=== PATIENT | female | born 1940 | race Caucasian/White ===

== ENCOUNTER 2020-12-01 12:33 | Inpatient (IN) ==
[2020-12-01] MEDS ORDERED: morphine 4 MG/ML VIAL IV ONE (13:07)
--- NOTE | 2020-12-01 13:10 | Emergency Department Note ---
Lower Extremity Injury HPI General Chief Complaint: Extremity Injury, Lower Stated Complaint: Right Hip Pain Time Seen by Provider: 12/01/20 12:59 Source: patient Mode of arrival: wheelchair Limitations: no limitations History of Present Illness HPI Narrative: Patient is an 80-year-old lady who arrives emergency department by private vehicle accompanied by her complaining of a fall. The patient says last night she was carrying her dog trying to get into a vehicle when she lost her balance and fell, landing on her right side injuring her right leg and right elbow. She did not strike her head and did not lose consciousness. Her assisted her up but she has been having difficulty ambulating ever since due to pain in her right groin. She finds it moving her leg makes the pain worse. She also notes that she has been having pain in her right elbow is worsened with movement of the elbow as well. She took half of a hydrocodone tablet last night with some improvement in her symptoms. Today, she continued to have difficulty ambulating so she decided come in for further evaluation. She denies any numbness or paresthesias. She does have chronic neck pain that is unchanged from baseline. Related Data Home Medications Medication Instructions Recorded Confirmed losartan 50 mg tablet 100 mg PO QDAY tab 12/20/14 12/01/20 omeprazole 20 mg capsule,delayed 20 mg PO QDAY cap 12/20/14 12/01/20 release omega-3 fatty acids 1,000 mg 1,000 mg PO BID cap 12/22/14 12/01/20 capsule denosumab 60 mg/mL subcutaneous 60 mg SUB-Q Q6M ml 02/12/19 06/07/20 syringe gabapentin 300 mg capsule 300 mg PO TID cap 06/07/20 12/01/20 pregabalin 200 mg capsule 200 mg PO BID 06/07/20 12/01/20 Previous Rx's Medication Instructions Recorded calcium carbonate-vitamin D3 600 1 tab PO QDAY #30 tab 02/12/19 mg (1,500 mg)-800 unit tablet cholecalciferol (vitamin D3) 125 5,000 unit PO QDAY #30 cap 02/12/19 mcg (5,000 unit) capsule diclofenac sodium 1 % topical gel 2 g TOPICAL QID PRN #100 g 11/02/19 Allergies Allergy/AdvReac Type Severity Reaction Status Date / Time No Known Drug Allergies Allergy Verified 06/07/20 09:51 Review of Systems ROS ROS Narrative: Narrative: All systems ED: reviewed and negative except as stated. Constitutional: Denies fever and chills Cardiovascular: Denies chest pain Respiratory: Denies shortness of breath and cough PFSH Narrative Patient History Narrative: Narrative: Medical/Surgical/Family History All Active Problems (Updated 12/01/20 @ 17:07 by Orlando Gonzalez DO) Closed fracture of superior pubic ramus (Acute) Fracture of proximal end of right radius (Acute) Elbow laceration (Acute) Dupuytren contracture (Acute) Occipital neuralgia of left side (Acute) Polyarthralgia (Acute) Pain in left knee (Chronic) Neck Pain (Chronic) Pain in both knees (Chronic) Encounter for long-term current use of high risk medication (Acute) Encounter for long-term current use of medication (Acute) Inflammatory osteoarthritis (Acute) Inflammatory arthritis (Chronic) Osteoarthritis of both knees (Chronic) Arthritis (Chronic) Status post right knee replacement (Acute) Ulcer, surgical (Acute) History of laminectomy (Acute) S/P hernia surgery (Acute) History of cholecystectomy (Acute) Bilateral knee pain (Chronic) Renal cyst (Chronic) Chronic low back pain (Chronic) Spinal stenosis (Chronic) Compensatory emphysema (Chronic) Iron deficiency anemia due to chronic blood loss (Chronic) GERD (gastroesophageal reflux disease) (Chronic) Encounter for long-term (current) use of non-steroidal anti-inflammatories (Chronic) Osteoarthrosis (Chronic) Depression (Chronic) Hammer toe (Chronic) Equinus deformity of foot, acquired (Chronic) Hyperkeratosis (Chronic) Instability of joint (Chronic) Bunion (Chronic) Excessive caffeine abuse, continuous (Chronic) Essential hypertension (Chronic) Medical History (Updated 12/01/20 @ 17:07 by Orlando Gonzalez DO) Arthritis Bilateral knee pain Bunion Chronic low back pain Compensatory emphysema Depression Dupuytren contracture Encounter for long-term (current) use of non-steroidal anti-inflammatories Encounter for long-term current use of high risk medication Encounter for long-term current use of medication Equinus deformity of foot, acquired Essential hypertension Excessive caffeine abuse, continuous GERD (gastroesophageal reflux disease) Hammer toe Rigid left 2nd Hyperkeratosis Inflammatory arthritis Inflammatory osteoarthritis Instability of joint Iron deficiency anemia due to chronic blood loss Neck Pain Occipital neuralgia of left side Osteoarthritis of both knees Osteoarthrosis Pain in both knees Pain in left knee Polyarthralgia Renal cyst Left Spinal stenosis Urinary tract infection Surgical History History of cholecystectomy History of laminectomy S/P hernia surgery Inguinal Hernia Repair Status post right knee replacement 2011 Ulcer, surgical Peptic Social History Smoking Status: Never smoker Alcohol Intake Frequency: does not drink Substance Use: does not use Exam Narrative Narrative: I reviewed the vital signs. Gen -patient is awake and alert and appears somewhat uncomfortable. The patient is well groomed. HEENT -head is atraumatic. There is no conjunctival pallor or scleral icterus. Mucous membranes are moist. There is no midline cervical spine tenderness to palpation CV -S1-S2 regular rate and rhythm. Peripheral pulses are palpable. There is no JVD. GI - Abdomen is soft and nontender to palpation. There is no guarding or rebound tenderness. Resp -breathing is nonlabored. Lungs are clear to auscultation bilaterally. There is no cyanosis. GI - Abdomen is soft and nontender to palpation. There is no guarding or rebound tenderness. Derm -skin is warm and dry. There is no visible rash. MSK -there is a skin tear over the right posterior elbow without any active bleeding. Patient has moderate tenderness to palpation of her right elbow with limited extension due to pain. There is no palpable bony deformity. Radial pulses palpable. Sensation in the hand is intact. Right wrist and shoulder are nontender to palpation. The patient's pelvis is stable. There is mild tenderness to palpation over the right greater trochanter without palpable bony deformity. Patient has slightly limited flexion of the hip due to pain. Dorsalis pedis and posterior tibial pulses are palpable. Patient's right knee is nontender to palpation. Psych -patient has appropriate affect. The patient does not appear internally stimulated. Neuro -patient answers questions appropriately with fluent speech. Patient moves all present extremities equally. General Limitations: no limitations Course Vital Signs Vital signs: Vital Signs Temperature 97.3 F 12/01/20 12:34 Pulse Rate 69 12/01/20 12:34 Respiratory Rate 18 12/01/20 12:34 Blood Pressure 113/64 12/01/20 12:34 Pulse Oximetry (%) 94 12/01/20 12:34 Temperature 98.7 F 12/02/20 03:35 Pulse Rate 68 12/02/20 03:35 Respiratory Rate 16 12/02/20 03:35 Blood Pressure 134/70 12/02/20 03:35 Pulse Oximetry (%) 90 12/02/20 03:35 Procedures Other Procedure: Laceration repair of the right elbow. Description: This is a curvilinear superficial laceration that involves 2 flaps. This measures 3 cm in total length Skin was cleansed with tap water and particulate debris was removed. Bottom of the wound was visualized in a bloodless field. There is no visible bone or joint space involvement and no visible foreign bodies following removal of the particulate foreign material. Wound margins were approximated using Steri- Strips. Following the procedure, there was satisfactory apposition of wound margins and good hemostasis. No complications were observed. [facility] MDM Narrative Medical decision making narrative: Patient presents following a mechanical fall. X-rays interpreted by the radiologist reveal an occult fracture of her right elbow likely a nondisplaced proximal radius fracture. X-rays of her right hip do not reveal any obvious injury. Patient was given IV pain medication and her laceration was repaired as detailed separately. Despite this, she was unable to ambulate or bear any weight on her right lower extremity. Due to my suspicion for possible occult hip fracture I obtained a CT scan that does reveal a nondisplaced pubic ramus fracture. Given this and the patient's inability to ambulate I recommended she be admitted for further treatment and pain control and she was agreeable. I discussed the patient's history examination and diagnostic findings with Dr. Samaniego, who agrees with the plan of care and accepts admission. Lab Data Lab results reviewed: Yes I reviewed the patient's lab results. Result diagrams: 12/01/20 13:20 Labs: Lab Results 12/01/20 12/01/20 Range/Units 13:20 13:20 WBC 5.6 (4.5-11.0) K/mcL RBC 3.51 L (4.00-5.20) M/mcL Hgb 11.1 L (12.0-15.0) g/dL Hct 32.8 L (36.0-48.0) % POC Hct 32 L (36-48) % MCV 93.4 (80.0-100.0) fL MCH 31.6 (26.0-34.0) pg MCHC 33.8 (31.0-36.0) g/dL RDW 14.5 (11.5-14.5) % Plt Count 172 (140-440) K/mcL MPV 10.7 H (7.4-10.4) fL Neut % (Auto) 64.9 (38.0-78.0) % Lymph % (Auto) 19.4 (15.0-49.0) % [place] % (Auto) 13.3 H (1.0-12.0) % Eos % (Auto) 1.3 (0.0-7.0) % Baso % (Auto) 1.1 (0.0-2.0) % Lymph # (Auto) 1.08 L (1.50-4.80) K/mcL [place] # (Auto) 0.74 (0.10-0.90) K/mcL Eos # (Auto) 0.07 (0.00-0.70) K/mcL Baso # (Auto) 0.06 (0.00-0.20) K/mcL Absolute Neutrophils 3.63 (1.80-8.00) K/mcL POC Sodium 141 (133-145) mEq/L POC Potassium 3.5 (3.3-5.1) mEql/L POC Chloride 105 (96-108) mEq/L POC Total CO2 22 (22-30) mmol/L POC BUN 19 (6-20) mg/dL POC Creatinine 0.8 (0.6-1.2) mg/dL POC Glucose 91 (70-105) mg/dL POC WB Ioniz Calcium 1.12 L (1.16-1.32) mmEq/L ED POC Tests ED POC Tests: KAYY - SARS Antigen Negative Discharge Plan Patient/Caregiver Discharge Instructions Pt seen by FEEDER LOADER/PA only: No Clinical Impression: Closed fracture of superior pubic ramus Qualifiers: Encounter type: initial encounter Laterality: right Qualified Code(s): S32.511A - Fracture of superior rim of right pubis, initial encounter for closed fracture Fracture of proximal end of right radius Qualifiers: Encounter type: initial encounter Fracture type: closed Fracture morphology: unspecified fracture morphology Qualified Code(s): S52.101A - Unspecified fracture of upper end of right radius, initial encounter for closed fracture Elbow laceration Qualifiers: Encounter type: initial encounter Laterality: right Qualified Code(s): S51.011A - Laceration without foreign body of right elbow, initial encounter Patient Disposition: Xfer As Inpt ([facility]) Condition: Good Discharge Date/Time: 12/01/20 19:25
[2020-12-01 13:39] LABS: POC Blood Urea Nitrogen 19 mg/dL (6-20); POC CO2 22 mmol/L (22-30); POC Calcium, Ionized 1.12 mmEq/L (1.16-1.32); POC Chloride 105 mEq/L (96-108); POC Creatinine 0.8 mg/dL (0.6-1.2); POC Glucose, Random 91 mg/dL (70-105); POC Hematocrit 32 % (36-48); POC Potassium 3.5 mEql/L (3.3-5.1); POC Sodium 141 mEq/L (133-145)
--- NOTE | 2020-12-01 13:54 | XRay Report ---
INDICATION: fall, possible radius fracture TECHNIQUE: AP, oblique, lateral right elbow COMPARISON: None. FINDINGS: There is soft tissue abnormality dorsal to the right elbow. There are radiopaque foreign bodies consistent with debris. There is cortical irregularity involving the lip of the right radial head. This may be an acute fracture. This does not appear to involve the articular surface. Follow-up radiographs recommended to better assess chronicity. Proximal ulna and distal humerus are negative. No plain film evidence for hemarthrosis IMPRESSION: 1. Cortical irregularity involving the proximal right radius. This may be a nondisplaced acute fracture 2. Soft tissue injury with radiopaque debris Interpreted and Authenticated by: Az Yao 12/01/20
--- NOTE | 2020-12-01 13:59 | XRay Report ---
INDICATION: fall, possible IT fracture TECHNIQUE: Portable AP and lateral right hip COMPARISON: None. FINDINGS: Negative pelvis. No detectable pelvic fracture. There is degenerative disc disease in the lower lumbar spine Right femoral head and neck are negative. No fracture. No evidence for avascular necrosis. No acute abnormality IMPRESSION: 1. Negative right hip 2. Degenerative disc disease in the lower lumbar spine Interpreted and Authenticated by: Az Yao 12/01/20
--- NOTE | 2020-12-01 15:27 | Cat Scan Report ---
INDICATION: fall TECHNIQUE: Axial images through the right hip. Sagittal and coronal reformatted images COMPARISON: Plain film right hip dated 12/01/2020 FINDINGS: Right femoral head and neck are intact. No fracture. No evidence for avascular necrosis. Right acetabulum is negative. Right inferior pubic ramus is negative. There is a mildly comminuted fracture of the right superior pubic ramus without significant displacement. No intra-articular hematoma or extrapelvic soft tissue abnormality IMPRESSION: 1. Mildly comminuted but nondisplaced right superior pubic ramus fracture 2. Negative right hip Interpreted and Authenticated by: Az Yao 12/01/20
[2020-12-01 18:15] LABS: Basophils # (Auto) 0.06 K/mcL (0.00-0.20); Basophils % (Auto) 1.1 % (0.0-2.0); Eosinophils # (Auto) 0.07 K/mcL (0.00-0.70); Eosinophils % (Auto) 1.3 % (0.0-7.0); Hematocrit 32.8 % (36.0-48.0); Hemoglobin 11.1 g/dL (12.0-15.0); Lymphocytes # (Auto) 1.08 K/mcL (1.50-4.80); Lymphocytes % (Auto) 19.4 % (15.0-49.0); Mean Cell Volume 93.4 fL (80.0-100.0); Mean Corpuscular HGB Conc 33.8 g/dL (31.0-36.0); Mean Platelet Volume 10.7 fL (7.4-10.4); Monocytes # (Auto) 0.74 K/mcL (0.10-0.90); Monocytes % (Auto) 13.3 % (1.0-12.0); Neutrophils % (Auto) 64.9 % (38.0-78.0); Platelet Count 172 K/mcL (140-440); RBC 3.51 M/mcL (4.00-5.20); Red Cell Distribution Width 14.5 % (11.5-14.5); WBC 5.6 K/mcL (4.5-11.0)
[2020-12-01] MEDS ORDERED: morphine 2 MG/ML VIAL IV PRN (18:31)
[2020-12-01] MEDS ORDERED: ACETAMINOPHEN 325 MG TABLET PO PRN (18:31)
[2020-12-01] MEDS ORDERED: ONDANSETRON 4 MG/2 ML VIAL IV PRN ×2 (18:31→19:05)
--- NOTE | 2020-12-01 19:00 | Internal Med History&Physical ---
HPI History of Present Illness Patient information: Note initiated : 12/01/20 at 6:58 pm Service Date, if different from initiated Date: [] Patient: Karla Huber 80 y/o F admitted on for Right Hip Pain. Chief Complaint: [] History of present illness: Ms. Huber is a 80 year old F Patient was handling her dog try to get a vehicle when she lost her balance landing on her right side including her elbow. Did not hit her head or lose consciousness. Since then she has had difficulty ambulating because of severe pain in the groin. Work-up in the ED revealed a small nondisplaced superior rami fracture as well as possibly a proximal radial fracture. Patient is unable to bear weight given severity of pain and request for admission for possible placement was pursued. Patient denies chest pain shortness of breath coughing headache nausea vomiting. Labs unremarkable. Review of Systems: Positive as above. denies headache/fever/chills/nausea/vomiting/chest or abdominal pain/cough/dyspnea/diarrhea. Remaining 10 point review of system r eviewed negative PFSH PFSH All Active Problems (Updated 12/01/20 @ 17:07 by Orlando Gonzalez DO) Closed fracture of superior pubic ramus (Acute) Fracture of proximal end of right radius (Acute) Elbow laceration (Acute) Dupuytren contracture (Acute) Occipital neuralgia of left side (Acute) Polyarthralgia (Acute) Pain in left knee (Chronic) Neck Pain (Chronic) Pain in both knees (Chronic) Encounter for long-term current use of high risk medication (Acute) Encounter for long-term current use of medication (Acute) Inflammatory osteoarthritis (Acute) Inflammatory arthritis (Chronic) Osteoarthritis of both knees (Chronic) Arthritis (Chronic) Status post right knee replacement (Acute) Ulcer, surgical (Acute) History of laminectomy (Acute) S/P hernia surgery (Acute) History of cholecystectomy (Acute) Bilateral knee pain (Chronic) Renal cyst (Chronic) Chronic low back pain (Chronic) Spinal stenosis (Chronic) Compensatory emphysema (Chronic) Iron deficiency anemia due to chronic blood loss (Chronic) GERD (gastroesophageal reflux disease) (Chronic) Encounter for long-term (current) use of non-steroidal anti-inflammatories (Chronic) Osteoarthrosis (Chronic) Depression (Chronic) Hammer toe (Chronic) Equinus deformity of foot, acquired (Chronic) Hyperkeratosis (Chronic) Instability of joint (Chronic) Bunion (Chronic) Excessive caffeine abuse, continuous (Chronic) Essential hypertension (Chronic) Medical History (Updated 12/01/20 @ 17:07 by Orlando Gonzalez DO) Arthritis Bilateral knee pain Bunion Chronic low back pain Compensatory emphysema Depression Dupuytren contracture Encounter for long-term (current) use of non-steroidal anti-inflammatories Encounter for long-term current use of high risk medication Encounter for long-term current use of medication Equinus deformity of foot, acquired Essential hypertension Excessive caffeine abuse, continuous GERD (gastroesophageal reflux disease) Hammer toe Rigid left 2nd Hyperkeratosis Inflammatory arthritis Inflammatory osteoarthritis Instability of joint Iron deficiency anemia due to chronic blood loss Neck Pain Occipital neuralgia of left side Osteoarthritis of both knees Osteoarthrosis Pain in both knees Pain in left knee Polyarthralgia Renal cyst Left Spinal stenosis Urinary tract infection Surgical History History of cholecystectomy History of laminectomy S/P hernia surgery Inguinal Hernia Repair Status post right knee replacement 2011 Ulcer, surgical Peptic Social History household members: spouse housing: house lives independently: No marital status: education level: high school service: No fci: No occupational status: retired occupational exposures/hazards: No pets and animals: Yes pets and animals: dog(s) leisure activities: music and reading well-balanced diet: daily or most days daily servings fruits/ve or more times/day during the past year weight has: remained stable physical activity: walking frequency: daily alcohol intake frequency: does not drink substance use type: does not use olivia/baptist: [employer] seatbelt use: always MEDS/ALLERGIES Home Medications and Allergies Home Medications Medication Instructions Recorded Confirmed Type losartan 50 mg tablet 100 mg PO QDAY tab 12/20/14 06/07/20 History omeprazole 20 mg capsule,delayed 20 mg PO QDAY cap 12/20/14 06/07/20 History release omega-3 fatty acids 1,000 mg 1,000 mg PO BID cap 12/22/14 06/07/20 History capsule vitamins A,C,T-rlea-mmvvnb 1 each PO DAILY 09/04/18 06/07/20 History acetaminophen 500 mg tablet 500 mg PO Q6H PRN #30 tab 02/12/19 06/07/20 Rx calcium carbonate-vitamin D3 600 1 tab PO QDAY #30 tab 02/12/19 06/07/20 Rx mg (1,500 mg)-800 unit tablet cholecalciferol (vitamin D3) 125 5,000 unit PO QDAY #30 cap 02/12/19 06/07/20 Rx mcg (5,000 unit) capsule denosumab 60 mg/mL subcutaneous 60 mg SUB-Q Q6M ml 02/12/19 06/07/20 History syringe turmeric root extract 500 mg 500 mg PO BID #30 cap 02/12/19 06/07/20 Rx capsule diclofenac sodium 1 % topical gel 2 g TOPICAL QID PRN #100 g 11/02/19 06/07/20 Rx gabapentin 300 mg capsule 300 mg PO TID cap 06/07/20 06/07/20 History pregabalin 200 mg capsule 200 mg PO BID 06/07/20 06/07/20 History vit cap PO 06/07/20 06/07/20 History C,E,zinc,At-gksax-6-lutein-zeaxanthin 250 mg-2.5 mg-0.5 mg capsule tramadol 50 mg tablet 100 mg PO TID PRN #180 tab 09/11/20 Rx Allergies Allergy/AdvReac Type Severity Reaction Status Date / Time No Known Drug Allergies Allergy Verified 06/07/20 09:51 EXAM Constitutional Vitals: Temp Pulse Resp BP Pulse Ox 97.3 F 96 H 18 128/70 91 12/01/20 12:34 12/01/20 17:12 12/01/20 12:34 12/01/20 18:31 12/01/20 17:31 Exam: General: Alert, Awake, No acute Distress Eyes/N/T: EOMI, PERRL, Head/Neck: neck supple, normocephalic atraumatic CV: RRR, No murmurs, normal s1/s2 Pulm: Clear b/l, no wheezing/rhonchi/rales Abd: soft, nontender, +BS x4 Ext: no clubbing/cyanosis, trace LLE edema Neuro: Alert, no focal deficits, moves all extremities, CN 2-12 grossly intact, symmetrical strength b/l upper/lower, sensations intact b/l upper/lower Skin: warm/dry DATA Data Completed and Pending Labs: Labs from last 24 hours 12/01/20 12/01/20 13:20 13:20 WBC 5.6 RBC 3.51 L Hgb 11.1 L Hct 32.8 L POC Hct 32 L MCV 93.4 MCH 31.6 MCHC 33.8 RDW 14.5 Plt Count 172 MPV 10.7 H Neut % (Auto) 64.9 Lymph % (Auto) 19.4 [place] % (Auto) 13.3 H Eos % (Auto) 1.3 Baso % (Auto) 1.1 Lymph # (Auto) 1.08 L [place] # (Auto) 0.74 Eos # (Auto) 0.07 Baso # (Auto) 0.06 Absolute Neutrophils 3.63 POC Sodium 141 POC Potassium 3.5 POC Chloride 105 POC Total CO2 22 POC BUN 19 POC Creatinine 0.8 POC Glucose 91 POC WB Ioniz Calcium 1.12 L A/P Narrative A/P Narrative: A: *Pelvic fracture, right superior pubic rami: *possible Right elbow proximal nondisplaced fracture: *Generalized weakness/deconditioning: *HTN: *Depression: *GERD: * P: -pain control -PT/OT -CM for placement -cont home meds -ppx: Lovenox/home PPI DNR Time Spent With Patient Time: Total time spent is greater than 50% in coordination of care (as documented) at patient's floor/unit and/or counseling patient:
[2020-12-01] MEDS ORDERED: POTASSIUM CHLORIDE 20 MEQ TABLET PO PRN ×2 (19:05)
[2020-12-01] MEDS ORDERED: POLYETHYLENE GLYCOL 3350 17 GM PACKET PO PRN (19:05)
[2020-12-01] MEDS ORDERED: POTASSIUM CHLORIDE 40 MEQ in DEXTROSE 5% IN WATER 500 ML IV PRN (19:05)
[2020-12-01] MEDS ORDERED: SENNOSIDES 1 TABLET PO PRN (19:05)
[2020-12-01] MEDS ORDERED: morphine 4 MG/ML VIAL IV PRN (19:05)
[2020-12-01] MEDS ORDERED: MAGNESIUM SULFATE 2 GM/50 ML BAG IV PRN (19:05)
[2020-12-01] MEDS ORDERED: HYDROcodone/APAP 5/325MG TABLET PO PRN (19:05)
[2020-12-01] MEDS ORDERED: IPRATROPIUM/ALBUTEROL 3 ML AMPUL.NEB NEB PRN (19:05)
[2020-12-01] MEDS: DOCUSATE SODIUM 100 MG CAPSULE PO SCH (21:55)
[2020-12-01] MEDS: 0.9 % SODIUM CHLORIDE 10 ML SYRINGE IV SCH ×2 (21:58→21:59)
[2020-12-02] MEDS: 0.9 % SODIUM CHLORIDE 10 ML SYRINGE IV SCH ×5 (06:29→20:42)
--- NOTE | 2020-12-02 07:58 | Internal Med Progress Note ---
SUBJECTIVE Subjective Patient information: Note initiated : 12/02/20 at 7:57 am Service Date, if different from initiated Date: [] Patient: Karla Huber 80 y/o F admitted on 12/01/20 for Right Hip Pain. Chief Complaint: [] Interval history: History of present illness: Ms. Huber is a 80 year old F Patient was handling her dog try to get a vehicle when she lost her balance landing on her right side including her elbow. Did not hit her head or lose consciousness. Since then she has had difficulty ambulating because of severe pain in the groin. Work-up in the ED revealed a small nondisplaced superior rami fracture as well as possibly a proximal radial fracture. Patient is unable to bear weight given severity of pain and request for ad mission for possible placement was pursued. Patient denies chest pain shortness of breath coughing headache nausea vomiting. Labs unremarkable. 12/02 Pelvic pain is still present. But mildly improving. No overnight event or new complaints. Will work with PT. Review of Systems: denies headache/fever/chills/nausea/vomiting/chest or abdominal pain/cough/dyspnea/diarrhea. Otherwise see above. Constitutional Vitals: Vital Signs Temp Pulse Resp BP Pulse Ox 98.7 F 68 16 134/70 90 12/02/20 03:35 12/02/20 03:35 12/02/20 03:35 12/02/20 03:35 12/02/20 03:35 Period Temp Pulse Resp BP Sys/Montano Pulse Ox Last 24 Hr 97.3 F-98.8 F 60-96 16-18 107-145/55-99 90-97 Intake and Output 12/01/20 12/02/20 12/02/20 21:59 05:59 13:59 Intake Total 360 Output Total 1000 Balance -640 Weight 62.737 kg Intake & Output: Intake & Output 12/01/20 12/02/20 12/02/20 21:59 05:59 13:59 Intake Total 360 Output Total 1000 Balance -640 Weight 62.737 kg Intake: Oral 360 Output: Void Amount 1000 Other: Urine Color Bright Yellow Exam: General: Alert, Awake, No acute Distress Eyes/N/T: EOMI, Head/Neck: neck supple, CV: RRR, No murmurs, Pulm: Clear b/l, no wheezing/rhonchi/rales Abd: soft, nontender, +BS x4 Ext: no clubbing/cyanosis, trace LLE edema Neuro: Alert, no focal deficits, moves all extremities, Skin: warm/dry OBJ DATA Labs CBC & Chem 7: 12/01/20 13:20 Labs: Abnormal Lab Results 12/01/20 12/01/20 13:20 13:20 RBC 3.51 L Hgb 11.1 L Hct 32.8 L POC Hct 32 L MPV 10.7 H [place] % (Auto) 13.3 H Lymph # (Auto) 1.08 L POC WB Ioniz Calcium 1.12 L Meds: Medications Acetaminophen (Acetaminophen 325 Mg Tablet) 650 mg PO Q6HP PRN PRN Reason: PAIN/FEVER > 101 Hydrocodone Bitart/Acetaminophen (Hydrocodone/Apap 5/325mg Tablet) 1 tab PO Q4HP PRN PRN Reason: PAIN LEVEL 3-6 Albuterol/Ipratropium (Ipratropium/Albuterol 3 Ml Ampul.Neb) 3 ml NEB Q4HP PRN PRN Reason: Shortness Of Breath Docusate Sodium (Docusate Sodium 100 Mg Capsule) 100 mg PO BID [facility] Last Admin: 12/01/20 21:55 Dose: Not Given Documented by: Enoxaparin Sodium (Enoxaparin 40 Mg/0.4 Ml Syringe) 40 mg SQ DAILY [facility] Potassium Chloride 40 meq/ (Dextrose) 520 mls @ 130 mls/hr IV UD PRN PRN Reason: Potassium < 3 Magnesium Sulfate (Magnesium Sulfate) 2 gm in 50 mls @ 50 mls/hr IV UD PRN PRN Reason: Magnesium </= 1.6 Morphine Sulfate (Morphine 4 Mg/Ml Vial) 0 mg IV Q3HP PRN PRN Reason: Pain Ondansetron HCl (Ondansetron 4 Mg/2 Ml Vial) 4 mg IV Q4HP PRN PRN Reason: Nausea And Vomiting Polyethylene Glycol (Polyethylene Glycol 3350 17 Gm Packet) 17 gm PO DAILYP PRN PRN Reason: Constipation Potassium Chloride (Potassium Chloride 20 Meq Tablet) 40 meq PO UD PRN PRN Reason: Potssium is 3-3.5 Potassium Chloride (Potassium Chloride 20 Meq Tablet) 40 meq PO UD PRN PRN Reason: Potassium < 3 Senna (Sennosides 1 Tablet) 2 tab PO DAILYP PRN PRN Reason: Constipation Sodium Chloride (0.9 % Sodium Chloride 10 Ml Syringe) 10 ml IV Q8 [facility] Last Admin: 12/02/20 06:29 Dose: 10 ml Documented by: Sodium Chloride (0.9 % Sodium Chloride 10 Ml Syringe) 10 ml IV Q8 [facility] Last Admin: 12/02/20 06:29 Dose: Not Given Documented by: A/P Narrative A/P Narrative: A: *Pelvic fracture, right superior pubic rami: *possible Right elbow proximal nondisplaced fracture: *Generalized weakness/deconditioning: *HTN: *Depression: *GERD: * P: -pain control -PT/OT -CM for placement -cont home meds -ppx: Lovenox/home PPI DNR Time Spent With Patient Time: Total time spent is greater than 50% in coordination of care (as documented) at patient's floor/unit and/or counseling patient:
[2020-12-02] MEDS: DOCUSATE SODIUM 100 MG CAPSULE PO SCH ×2 (10:21→20:41)
[2020-12-02] MEDS: ENOXAPARIN 40 MG/0.4 ML SYRINGE SQ SCH (10:21)
[2020-12-02] MEDS ORDERED: Diclofenac Sodium 1 % gel TOPICAL PRN (11:06)
[2020-12-02] MEDS ORDERED: GABAPENTIN 300 MG CAPSULE PO SCH (15:00)
[2020-12-02] MEDS: DULoxetine 30 MG CAPSULE PO SCH (20:42)
[2020-12-02] MEDS: PREGABALIN 100 MG CAPSULE PO SCH (20:42)
[2020-12-03] MEDS: 0.9 % SODIUM CHLORIDE 10 ML SYRINGE IV SCH ×3 (05:48→20:26)
[2020-12-03] MEDS: OMEPRAZOLE 20 MG CAPSULE PO SCH (08:13)
[2020-12-03] MEDS: CALCIUM W/VIT D3 500 MG TABLET PO SCH (08:21)
[2020-12-03] MEDS: ACETAMINOPHEN 325 MG TABLET PO PRN ×2 (08:21→18:33)
[2020-12-03] MEDS: DOCUSATE SODIUM 100 MG CAPSULE PO SCH ×2 (08:21→20:27)
[2020-12-03] MEDS: LOSARTAN 50 MG TABLET PO SCH (08:21)
[2020-12-03] MEDS: PREGABALIN 100 MG CAPSULE PO SCH ×2 (08:21→20:26)
[2020-12-03] MEDS: DULoxetine 30 MG CAPSULE PO SCH ×2 (08:21→20:26)
[2020-12-03] MEDS: ENOXAPARIN 40 MG/0.4 ML SYRINGE SQ SCH (08:22)
--- NOTE | 2020-12-03 09:18 | Internal Med Progress Note ---
SUBJECTIVE Subjective Patient information: Note initiated : 12/03/20 at 9:17 am Service Date, if different from initiated Date: [] Patient: Karla Huber 80 y/o F admitted on 12/01/20 for Right Hip Pain. Chief Complaint: [] Interval history: History of present illness: Ms. Huber is a 80 year old F Patient was handling her dog try to get a vehicle when she lost her balance landing on her right side including her elbow. Did not hit her head or lose consciousness. Since then she has had difficulty ambulating because of severe pain in the groin. Work-up in the ED revealed a small nondisplaced superior rami fracture as well as possibly a proximal radial fracture. Patient is unable to bear weight given severity of pain and request for ad mission for possible placement was pursued. Patient denies chest pain shortness of breath coughing headache nausea vomiting. Labs unremarkable. 12/02 Pelvic pain is still present. But mildly improving. No overnight event or new complaints. Will work with PT. 12/03 Patient able to walk to the bathroom back but still quite painful. Awaiting rehab on Friday. Review of Systems: denies headache/fever/chills/nausea/vomiting/chest or abdominal pain/cough/dyspnea/diarrhea. Otherwise see above. Constitutional Vitals: Vital Signs Temp Pulse Resp BP Pulse Ox 97.8 F 70 14 126/68 91 12/03/20 07:06 12/03/20 07:06 12/03/20 07:06 12/03/20 07:06 12/03/20 07:06 Period Temp Pulse Resp BP Sys/Montano Pulse Ox Last 24 Hr 97.8 F-99.2 F 61-80 14-18 100-142/55-70 91-98 Intake and Output 12/02/20 12/03/20 12/03/20 21:59 05:59 13:59 Intake Total 400 600 Output Total 900 675 Balance -500 -75 Weight 59.965 kg Intake & Output: Intake & Output 12/02/20 12/03/20 12/03/20 21:59 05:59 13:59 Intake Total 400 600 Output Total 900 675 Balance -500 -75 Weight 59.965 kg Intake: Oral 400 600 Output: Void Amount 900 675 Other: Meal Dinner Percent of Meal Consumed 100% Feeding Ability Independent Urine Color Dark Yellow Dark Yellow Exam: General: Alert, Awake, No acute Distress Eyes/N/T: EOMI, Head/Neck: neck supple, CV: RRR, No murmurs, Pulm: Clear b/l, no wheezing/rhonchi/rales Abd: soft, nontender, +BS x4 Ext: no clubbing/cyanosis, LLE edema chronic Neuro: Alert, no focal deficits, moves all extremities, Skin: warm/dry OBJ DATA Labs CBC & Chem 7: 12/01/20 13:20 Labs: Abnormal Lab Results 12/01/20 12/01/20 13:20 13:20 RBC 3.51 L Hgb 11.1 L Hct 32.8 L POC Hct 32 L MPV 10.7 H [place] % (Auto) 13.3 H Lymph # (Auto) 1.08 L POC WB Ioniz Calcium 1.12 L Meds: Medications Acetaminophen (Acetaminophen 325 Mg Tablet) 650 mg PO Q6HP PRN PRN Reason: PAIN/FEVER > 101 Last Admin: 12/03/20 08:21 Dose: 650 mg Documented by: Hydrocodone Bitart/Acetaminophen (Hydrocodone/Apap 5/325mg Tablet) 1 tab PO Q4HP PRN PRN Reason: PAIN LEVEL 3-6 Albuterol/Ipratropium (Ipratropium/Albuterol 3 Ml Ampul.Neb) 3 ml NEB Q4HP PRN PRN Reason: Shortness Of Breath Calcium/Vitamin D (Calcium W/Vit D3 500 Mg Tablet) 500 mg PO QDAY [facility] Last Admin: 12/03/20 08:21 Dose: 500 mg Documented by: Docusate Sodium (Docusate Sodium 100 Mg Capsule) 100 mg PO BID [facility] Last Admin: 12/03/20 08:21 Dose: 100 mg Documented by: Duloxetine HCl (Duloxetine 30 Mg Capsule) 30 mg PO BID [facility] Last Admin: 12/03/20 08:21 Dose: 30 mg Documented by: Enoxaparin Sodium (Enoxaparin 40 Mg/0.4 Ml Syringe) 40 mg SQ DAILY [facility] Last Admin: 12/03/20 08:22 Dose: 40 mg Documented by: Potassium Chloride 40 meq/ (Dextrose) 520 mls @ 130 mls/hr IV UD PRN PRN Reason: Potassium < 3 Magnesium Sulfate (Magnesium Sulfate) 2 gm in 50 mls @ 50 mls/hr IV UD PRN PRN Reason: Magnesium </= 1.6 Losartan Potassium (Losartan 50 Mg Tablet) 100 mg PO QDAY [facility] Last Admin: 12/03/20 08:21 Dose: 100 mg Documented by: Morphine Sulfate (Morphine 4 Mg/Ml Vial) 0 mg IV Q3HP PRN PRN Reason: Pain Omeprazole (Omeprazole 20 Mg Capsule) 20 mg PO QAMAC [facility] Last Admin: 12/03/20 08:13 Dose: 20 mg Documented by: Ondansetron HCl (Ondansetron 4 Mg/2 Ml Vial) 4 mg IV Q4HP PRN PRN Reason: Nausea And Vomiting Diclofenac Sodium 1 (% Gel) 2 dose TOPICAL QIDP PRN PRN Reason: pain Polyethylene Glycol (Polyethylene Glycol 3350 17 Gm Packet) 17 gm PO DAILYP PRN PRN Reason: Constipation Potassium Chloride (Potassium Chloride 20 Meq Tablet) 40 meq PO UD PRN PRN Reason: Potssium is 3-3.5 Potassium Chloride (Potassium Chloride 20 Meq Tablet) 40 meq PO UD PRN PRN Reason: Potassium < 3 Pregabalin (Pregabalin 100 Mg Capsule) 200 mg PO BID [facility] Last Admin: 12/03/20 08:21 Dose: 200 mg Documented by: Senna (Sennosides 1 Tablet) 2 tab PO DAILYP PRN PRN Reason: Constipation Sodium Chloride (0.9 % Sodium Chloride 10 Ml Syringe) 10 ml IV Q8 [facility] Last Admin: 12/03/20 05:48 Dose: 10 ml Documented by: A/P Narrative A/P Narrative: A: *Pelvic fracture, right superior pubic rami: *possible Right elbow proximal nondisplaced fracture: *Generalized weakness/deconditioning: *HTN: *Depression: *GERD: P: -pain control -PT/OT -CM for placement -cont home meds -ppx: Lovenox/home PPI DNR Time Spent With Patient Time: Total time spent is greater than 50% in coordination of care (as document ed) at patient's floor/unit and/or counseling patient:
[2020-12-04] MEDS: 0.9 % SODIUM CHLORIDE 10 ML SYRINGE IV SCH (05:49)
[2020-12-04] MEDS: OMEPRAZOLE 20 MG CAPSULE PO SCH (07:46)
[2020-12-04] MEDS: DOCUSATE SODIUM 100 MG CAPSULE PO SCH (09:04)
[2020-12-04] MEDS: PREGABALIN 100 MG CAPSULE PO SCH (09:05)
[2020-12-04] MEDS: CALCIUM W/VIT D3 500 MG TABLET PO SCH (09:05)
[2020-12-04] MEDS: LOSARTAN 50 MG TABLET PO SCH (09:05)
[2020-12-04] MEDS: DULoxetine 30 MG CAPSULE PO SCH (09:05)
[2020-12-04] MEDS: ENOXAPARIN 40 MG/0.4 ML SYRINGE SQ SCH (09:05)
--- NOTE | 2020-12-04 12:33 | Discharge Summary ---
Discharge Provider Provider Patient information: Note initiated : 12/04/20 at 12:29 pm Service Date, if different from initiated Date: [] Patient: Karla Huber 80 y/o F admitted on 12/01/20 for Right Hip Pain. Chief Complaint: [closed fracture of superior pubic ramus and fracture of proximal end of right radius secondary to fall] Date of admission: 12/01/20 19:24 Discharge date: 12/04/20 Primary care physician: Sabas Richey Consults: 12/01/20 Consult to Physician [CONS] Stat Comment: Consulting Provider: Luis Samaniego Reason For Exam: Physician to Consult Discharge Meds Discharge Medications Home Medications losartan 50 mg tablet 100 mg PO QDAY tab 12/20/14 [History Confirmed 12/01/20 Last Taken 11/30/20 09:00] omeprazole 20 mg capsule,delayed release 20 mg PO QDAY cap 12/20/14 [History Confirmed 12/01/20 Last Taken 11/30/20 09:00] omega-3 fatty acids 1,000 mg capsule 1,000 mg PO BID cap 12/22/14 [History Confirmed 12/01/20 Last Taken 11/28/20 09:00] calcium carbonate-vitamin D3 600 mg (1,500 mg)-800 unit tablet 1 tab PO QDAY #30 tab 02/12/19 [Rx Confirmed 12/01/20 Last Taken 11/29/20 09:00] cholecalciferol (vitamin D3) 125 mcg (5,000 unit) capsule 5,000 unit PO QDAY #30 cap 02/12/19 [Rx Confirmed 12/02/20 Last Taken Unknown] denosumab 60 mg/mL subcutaneous syringe 60 mg SUB-Q Q6M ml 02/12/19 [History Confirmed 12/02/20 Last Taken Unknown] diclofenac sodium 1 % topical gel 2 g TOPICAL QID PRN #100 g 11/02/19 [Rx Confirmed 12/01/20 Last Taken 11/24/20 20:00] pregabalin 200 mg capsule 200 mg PO BID 06/07/20 [History Confirmed 12/01/20 Last Taken 11/30/20 21:00] duloxetine 30 mg PO BID 12/02/20 [History Confirmed 12/02/20 Last Taken Unknown] Hydrocodone/Apap 5/325mg [Gustine 5/325mg] 1 tab PO Q4HP PRN #20 tab 12/04/20 [Rx Last Taken Unknown] COURSE Hospital Course Hospital course: She was admitted on December 01, 2020 for closed fracture of superior pubic ramus of the right as well as a fracture of proximal end of right radius secondary to fall. Orthopedic surgeon was consulted who recommend against any surgery and instead recommend ongoing medical management including pain control. Pain management in terms of IV morphine and p.o. Gustine as needed were provided. Physical and Occupational Therapy evaluations were provided and they recommend skilled nursing placement upon medical stability. Patient is which such stability on December 04, 2020 with pain being controlled without any IV narcotics. Patient excepted by SNF and decision made to discharge her to advanced skilled nursing on the same date. All questions were answered prior to patient being physically discharged. Discharge diagnosis: closed fracture of superior pubic ramus of the right as well as a fracture Time Spent with Patient Time attestation: Total time spent providing and/or coordinating discharge services: She was admitted on December 01, 2020 for closed fracture of superior pubic ramus of the right as well as a fracture of proximal end of right radius secondary to fall. Orthopedic surgeon was consulted who recommend against any surgery and instead recommend ongoing medical management including pain control. Pain management in terms of IV morphine and p.o. Gustine as needed were provided. Physical and Occupational Therapy evaluations were provided and they recommend skilled nursing placement upon medical stability. Patient is which such stability on December 04, 2020 with pain being controlled without any IV narcotics. Patient excepted by SNF and decision made to discharge her to advanced skilled nursing on the same date. All questions were answered prior to patient being physically discharged. EXAM Constitutional Vitals: Temp Pulse Resp BP Pulse Ox 36.4 C 61 18 98/55 93 12/04/20 11:50 12/04/20 11:50 12/04/20 11:50 12/04/20 11:50 12/04/20 11:50 General appearance: cooperative and no acute distress Head Head exam: Present atraumatic and normocephalic Eye Eye exam: Present EOMI and PERRL ENT ENT exam: Present mucous membranes moist, normal exam and normal external ear exam Neck Neck exam: Present normal inspection; Absent lymphadenopathy, tenderness and thyromegaly Respiratory Respiratory exam: Absent accessory muscle use, respiratory distress and wheezes Cardiovascular Cardiovascular exam: Present normal rate and rhythm; Absent JVD GI/Abdominal GI/Abdominal exam: Present normal bowel sounds and soft; Absent organomegaly and tenderness Extremities Exam Extremities exam: Present full ROM, normal capillary refill and normal inspection; Absent tenderness Additional comments: sling of the right arm Neurological Exam Neurological exam: Present alert, CN II-XII intact and oriented X3; Absent motor sensory deficit Psychiatric Psychiatric exam: Present normal affect and normal mood; Absent anxious and depressed Skin Skin exam: Present dry and intact Discharge Plan Patient/Caregiver Discharge Instructions Activity: as per physical therapy Diet: Regular Diet Prescriptions: New Hydrocodone/Apap 5/325mg [Gustine 5/325mg] 1 tab PO Q4HP PRN (Reason: pain (scale score 4-6)) Qty: 20 RF: 0 Continued diclofenac sodium 1 % gel 2 g TOPICAL QID PRN (Reason: pain) Qty: 100 RF: 2 losartan 50 mg tablet 100 mg PO QDAY RF: 0 omeprazole 20 mg capsule,delayed release(DR/EC) 20 mg PO QDAY RF: 0 omega-3 fatty acids 1,000 mg capsule 1,000 mg PO BID RF: 0 denosumab 60 mg/mL syringe 60 mg SUB-Q Q6M RF: 0 cholecalciferol (vitamin D3) 5,000 unit capsule 5,000 unit PO QDAY Qty: 30 RF: 0 calcium carbonate-vitamin D3 [Caltrate with Vitamin D3] 600 mg(1,500mg) -800 unit tablet 1 tab PO QDAY Qty: 30 RF: 0 pregabalin [Lyrica] 200 mg capsule 200 mg PO BID RF: 0 duloxetine 30 mg capsule,delayed release(DR/EC) 30 mg PO BID RF: 0 Follow Up Plan Follow up with: Sabas Richey MD [Primary Care Provider] - Patient Disposition: Xfer SNF Prognosis: Good Rehab Potential: Good I certify that the patient requires SNF services: Yes Overall status at discharge: patient is progressing back to baseline Discharge Orders: Discharge Order (Routine); Ordered 12/04/20 Ordered By: Robert Hargrove
== END 2020-12-04 14:15 | DRG 536 ==
LOC: ED 12:33 → MEDSUR 19:24
PROVIDERS: ADMIT Internal Medicine; ATTEND Internal Medicine